=== PATIENT | female | born 1980 | race Caucasian/White ===

== ENCOUNTER 2017-01-23 12:21 | Emergency (ER) | payer OTHER ==
[2017-01-23 12:32] VITALS: BP 105/71
--- NOTE | 2017-01-23 13:26 | UC ---
INima,Yesenia, scribed for Savi Zayas MD on 01/23/17 at 1315 . Skin Complaint HPI - HPI Summary HPI Summary: This 36 y/o female presents to [facility] for tick bite 4 days ago. Pt states that she was outside 5 days ago. Bull's eye rash is noted at time of initial evaluation. Positive intermittent PIKE, nausea, diffuse myalgia across trunk, fever/chills, and other cold like symptoms. Negative vomiting or joint swelling. Normal BM. Pt denies any PMHx. No prior Lyme disease. FHx is DM and CVA. Plan of care involving empirical treatment for lyme disease with doxycycline is discussed with pt, ad she is agreeable. R/b/a involving sun sensitivity and diary product is discussed with pt. Allergies information is reviewed. Vital signs are reviewed and noted with normotensive blood pressure of 105/71. - History of Current Complaint Chief Complaint: UCSkin Time Seen by Provider: 01/23/17 12:56 Stated Complaint: RED AREA ON SIDE Hx Obtained From: Patient, Medical Records Hx Last Menstrual Period: 3 WEEKS AGO ?: No Onset/Duration: Sudden Onset, Still Present Skin Exposure Onset/Duration: Days Ago Pain Intensity: 6 Pain Scale Used: 0-10 Numeric Character: Redness Aggravating: Nothing Alleviating: Nothing Associated Signs & Symptoms: Positive: Nausea, Fever, Chills. Negative: Vomiting, Joint Swelling - Allergy/Home Medications Allergies/Adverse Reactions: Allergies Allergy/AdvReac Type Severity Reaction Status Date / Time No Known Allergies Allergy Verified 01/23/17 12:25 Home Medications: Home Medications Ibuprofen TAB* [Advil TAB*] 2 tab PO QID PRN 01/23/17 [History Confirmed ] Review of Systems Constitutional: Fever, Chills Skin: Other - bulls right rash on right lateral chest area Eyes: Negative ENT: Negative Respiratory: Negative Cardiovascular: Negative Gastrointestinal: Nausea Genitourinary: Negative Motor: Negative Neurovascular: Negative Musculoskeletal: Myalgia - general, diffusely across trunk Neurological: Headache Psychological: Negative All Other Systems Reviewed And Are Negative: Yes PMH/Surg Hx/FS Hx/Imm Hx Previously Healthy: Yes - Surgical History Surgical History: Yes Surgery Procedure, Year, and Place: 2004 - - Family History Known Family History: Positive: Diabetes, Other - CVA - Social History 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 Lives: With Family Alcohol Use: None Substance Use Type: None Smoking Status (MU): Never Smoked Tobacco Physical Exam Triage Information Reviewed: Yes Appearance: Well-Appearing, Thin Vital Signs: Initial Vital Signs Temp 98.5 F 01/23/17 12:26 Pulse 89 01/23/17 12:26 Resp 16 01/23/17 12:26 BP 105/71 01/23/17 12:26 Pulse Ox 99 01/23/17 12:26 Vital Signs Reviewed: Yes Eyes: Positive: Conjunctiva Clear Neck exam: Normal Neck: Positive: Supple, Nontender, No Lymphadenopathy Respiratory: Positive: Lungs clear, Normal breath sounds Cardiovascular: Positive: RRR, No Murmur Abdomen Description: Positive: Nontender, No Organomegaly, Soft Neurological Exam: Normal Neurological: Positive: Alert, Muscle Tone Normal Psychological Exam: Normal Skin Exam: Other - 6 x 4.5 cm bull's eye rash right posterolateral chest wall. Course/Dx - Course Course Of Treatment: doxycycline for treatment of early Lyme disease. - Diagnoses Provider Diagnoses: Lyme disease Discharge - Discharge Plan Condition: Stable Disposition: HOME Prescriptions: Doxycycline (Monohydrate) [Doxycycline Monohydrate] 100 mg PO BID #42 cap Patient Education Materials: Lyme Disease (ED) Referrals: Sherita Navarro MD [Primary Care Provider] - Additional Instructions: The rash that you have is erythema migrans, a sign of early Lyme disease. The rash and symptoms could worsen for the next 2 days, but then should start to respond. Remember that the doxycycline will make you more prone to sunburn. You can take the doxy with a snack, but you should not have dairy within 2 hours of the dose. The documentation as recorded by the Nima dinero Soohyun accurately reflects the service I personally performed and the decisions made by me, Savi Zayas MD.
== END 2017-01-23 13:30 | disposition home or self-care (01) ==
LOC: UCEAST 12:21
DX: A69.20 Lyme disease, unspecified (principal)
CPT/HCPCS: 99212; G0463

== ENCOUNTER 2019-04-22 11:44 | Emergency (ER) | payer BC, MEDICAID, OTHER ==
[2019-04-22 11:50] VITALS: BP 116/66
--- NOTE | 2019-04-22 11:57 | UC ---
Throat Pain/Nasal Pedro Pablo HPI - HPI Summary HPI Summary: REports 3 days of sore throat, chills, fever. Denies sick contacts. - History of Current Complaint Chief Complaint: UCGeneralIllness Stated Complaint: SORE THROAT Time Seen by Provider: 04/22/19 11:56 Hx Obtained From: Patient Hx Last Menstrual Period: 04/02/19 Pain Intensity: 9 Pain Scale Used: 0-10 Numeric - Allergies/Home Medications Allergies/Adverse Reactions: Allergies Allergy/AdvReac Type Severity Reaction Status Date / Time Egg Derived Allergy Intermediate Rash Verified 04/22/19 11:51 PMH/Surg Hx/FS Hx/Imm Hx - Additional Past Medical History Additional PMH: no chronic condition. Previously Healthy: Yes - Surgical History Surgical History: Yes Surgery Procedure, Year, and Place: 2004 - - Family History Known Family History: Positive: Diabetes, Other - CVA - Social History Alcohol Use: None Substance Use Type: None Smoking Status (MU): Never Smoked Tobacco Review of Systems All Other Systems Reviewed And Are Negative: Yes Constitutional: Positive: Fever, Chills. Negative: Fatigue Skin: Negative: Rash ENT: Positive: Sore Throat Respiratory: Negative: Cough Cardiovascular: Negative: Palpitations Gastrointestinal: Negative: Nausea Neurological: Negative: Headache Physical Exam Triage Information Reviewed: Yes Appearance: Well-Appearing Vital Signs: Initial Vital Signs Temp 97.2 F 04/22/19 11:47 Pulse 84 04/22/19 11:47 Resp 18 04/22/19 11:47 BP 116/66 04/22/19 11:47 Pulse Ox 100 04/22/19 11:47 Vital Signs Reviewed: Yes Eyes: Positive: Conjunctiva Clear ENT: Positive: Pharyngeal erythema, TMs normal, Tonsillar swelling, Tonsillar exudate, Hoarse voice, Uvula midline Neck: Positive: Tenderness @ - R ant. cervical, Enlarged Nodes @ - R ant. cervical Respiratory Exam: Normal Cardiovascular Exam: Normal Neurological: Positive: Alert Skin: Negative: Rashes Throat Pain/Nasal Course/Dx - Course Course Of Treatment: Acute pharyngitis w/ subj. fevers and on exam there was erythema with exudates in throat. rapid strep was POSITIVE. vitals are good. will tx w/ antibx. - Differential Dx/Diagnosis Differential Diagnosis/HQI/PQRI: Peritonsillar Abscess, Pharyngitis, URI Provider Diagnosis: Strep pharyngitis Discharge ED - Sign-Out/Discharge Documenting (check all that apply): Patient Departure All imaging exams completed and their final reports reviewed: No Studies - Discharge Plan Condition: Good Disposition: HOME Prescriptions: Penicillin VK TAB* [Penicillin VK 250 mg Tab*] 500 mg PO BID 10 Days #20 tab Patient Education Materials: Pharyngitis (ED) Referrals: Ashish Palm MD [Primary Care Provider] - Additional Instructions: iF NOT IMPROVING PLEASE FOLLOW UP WITH YOUR PCP. - Billing Disposition and Condition Condition: GOOD Disposition: Home
== END 2019-04-22 12:40 | disposition home or self-care (01) ==
LOC: UCEAST 11:44
DX: J02.0 Streptococcal pharyngitis (principal); Z91.012 Allergy to eggs
CPT/HCPCS: 87651; 99212; G0463

== ENCOUNTER 2019-08-07 14:21 | Emergency (ER) | payer BC, OTHER ==
--- NOTE | 2019-08-07 14:26 | UC ---
Skin Complaint HPI - HPI Summary HPI Summary: 38 yo female presents with mouth rash. She tells me that over the last 1-2 months she has had a small bumpy rash on her chin that is itchy. She has been applying OTC hydrocortisone cream with no change. Says that it comes and goes. Over the last 2 days has spread to above her mouth, which is new for her. She denies fever, recent illness, swelling, change in perfumes/environment/creams/ lotions. - History of Current Complaint Time Seen by Provider: 08/07/19 14:26 Stated Complaint: SKIN COMP Hx Obtained From: Patient Hx Last Menstrual Period: 04/02/19 Onset/Duration: Gradual Onset Onset Severity: Mild Current Severity: Mild Pain Intensity: 2 - Allergy/Home Medications Allergies/Adverse Reactions: Allergies Allergy/AdvReac Type Severity Reaction Status Date / Time Egg Derived Allergy Intermediate Rash Verified 08/07/19 14:32 Home Medications: Home Medications Hydrocortisone 0.5% OINT* 1 applic TOPICAL ONCE PRN 08/07/19 [History Confirmed 08/07/19] Multivitamin [Multivitamins] 1 cap PO DAILY 08/07/19 [History Confirmed 08/07/19 ] PMH/Surg Hx/FS Hx/Imm Hx - Additional Past Medical History Additional PMH: None - Surgical History Surgical History: Yes Surgery Procedure, Year, and Place: 2004 - - Family History Known Family History: Positive: Diabetes, Other - CVA - Social History Lives: With Family Alcohol Use: None Substance Use Type: None Smoking Status (MU): Never Smoked Tobacco Review of Systems All Other Systems Reviewed And Are Negative: No Constitutional: Positive: Negative Skin: Positive: Rash Eyes: Positive: Negative ENT: Positive: Negative Respiratory: Positive: Negative Cardiovascular: Positive: Negative Gastrointestinal: Positive: Negative Neurological: Positive: Negative Psychological: Positive: Negative Physical Exam - Summary Physical Exam Summary: GENERAL: NAD. WDWN. No pain distress. SKIN: Around her lips and on her chin there are scattered small pustules and erythematous bumps. No ulceration, drainage, abscess, edema, streaking. NECK: Supple. Nontender. No lymphadenopathy. CHEST: No accessory muscle use. Breathing comfortably and in no distress. CV: Pulses intact. Cap refill <2seconds NEURO: Alert. PSYCH: Age appropriate behavior. Triage Information Reviewed: Yes Vital Signs: Vital Signs: Temp Pulse Resp BP Pulse Ox 98.9 F 81 15 115/77 100 08/07/19 14:34 08/07/19 14:34 08/07/19 14:34 08/07/19 14:34 08/07/19 14:34 Vital Signs Reviewed: Yes Course/Dx - Course Course Of Treatment: Suspect michelle-oral dermatitis. Advised to stop using all OTC creams and lotions and start the erythromycin ointment - Diagnoses Provider Diagnosis: Perioral dermatitis Discharge ED - Sign-Out/Discharge Documenting (check all that apply): Patient Departure All imaging exams completed and their final reports reviewed: No Studies - Discharge Plan Condition: Stable Disposition: HOME Prescriptions: Erythromycin Base [Erythromycin] 1 gm TOPICAL BID #1 tube Patient Education Materials: Dermatitis (ED) Referrals: Ashish Palm MD [Primary Care Provider] - Mikie Malhotra MD [Medical Doctor] - Additional Instructions: If you develop a fever, shortness of breath, chest pain, new or worsening symptoms - please call your PCP or go to the ED immediately. Stop applying all other creams and hydrocortisone. If your symptoms do not improve - please call dermatology at the number below to schedule an appointment for a recheck - Billing Disposition and Condition Condition: STABLE Disposition: Home
[2019-08-07 14:40] VITALS: BP 115/77
== END 2019-08-07 14:47 | disposition home or self-care (01) ==
LOC: UCCORT 14:21
DX: L71.0 Perioral dermatitis (principal); Z91.012 Allergy to eggs
CPT/HCPCS: 99212; G0463